=== PATIENT | female | born 1935 | race Caucasian/White ===

== ENCOUNTER 2017-07-18 12:17 | Observation (INO) | payer BC, MEDICARE ==
[2017-07-18] VITALS (7 sets, daily range): BP systolic 133–140; BP diastolic 63–85; PULSE 93–106; RESP 18–20; TEMP 97.3–98.7; O2SAT 92–96
[~2017-07-18] VITALS: Ht 157.5 cm; Wt 85.2 kg
[~2017-07-18 12:17] MED LIST: ALBU1AER INH; ASMA220A IN; BENZ100 PO; CALCTAB8 PO; CELE200 PO; CLAR5TAB PO; COZA100T PO; FLON0.053; GLUC500C3 PO; HYDR-2768 PO; METH1TAB29 PO; MIAC200S; NAPR-576 PO; OMEG100010 PO; PERC5TAB12 PO; PRAV40TA PO; PREV30CA36 PO; TAB-TAB PO; TOVI4TAB PO; VITA200017 PO
[2017-07-18] MEDS ORDERED: methylPREDNISolone SOD SUCC 125 MG/2 ML VIAL IV PUSH ONE (12:45)
[2017-07-18] MEDS ORDERED: RESP: ALBUTEROL 2.5 MG/IPRATROPIUM 0.5 MG NEB (SCH) NEB ONE ×2 (12:45→15:00)
--- NOTE | 2017-07-18 12:45 | PD ---
HPI Chief Complaint: Respiratory Symptoms Time Seen by Provider: 12:31 Travel History International Travel<30 days: No Contact w/Intl Traveler<30days: No Traveled to known affect area: No History of Present Illness HPI This 82-year-old female was sent from Dr. Lynn's office because of cough and shortness of breath. She has been sick for several days. She has had a persistent cough which is been quite severe. She is feeling short of breath. She has been bringing up clear phlegm. She has been coughing to the point of vomiting. She has a history of asthma. She also has a history of hypertension. She has not smoked for over 50 years. She was at Dr. Lynn' s office and was not responding to repeated nebulizer treatments so she was sent here. He had started a Medrol Dosepak this morning. She was on steroids 2 weeks ago. She did have a DVT in 1999 after colon surgery PFSH Past Medical History Arthritis: Yes Asthma: Yes Blood Disorders: No Heart Rhythm Problems: No Cancer: No Cardiac Catheterization: No Cardiovascular Problems: Yes (DVT) High Cholesterol: Yes Congestive Heart Failure: No Diabetes: No Diminished Hearing: No Diverticulitis: Yes Endocrine: No Gastrointestinal Disorders: Yes (IBS/colitis) GERD: Yes Glaucoma: No Genitourinary: Yes (incontinece) Hiatal Hernia: Yes Hypertension: Yes Immune Disorder: No Implanted Vascular Access Dvce: Yes Musculoskeletal: Yes (OSTEOPENIA) Neurologic: Yes Psychiatric: No Reproductive: No Respiratory: Yes (ENVIRONMENTAL ALLERGIES) Sleep Apnea: Yes ?: Not Past Surgical History Abdominal Surgery: Yes (HERNIA REPAIR X 7, colon resection) Body Medical Devices: praful rct Section: Yes (X1) Cholecystectomy: Yes Coronary Artery Bypass Graft: No Genitourinary Surgery: Yes (bladder suspension) Gynecologic Surgery: Yes (hysterectomy) Hysterectomy: Yes (AND BLADDER SUSPENSION) Joint Replacement: Yes (LEFT HIP) Neurologic Surgery: Yes (CERVICAL DISCECTOMY, BACK SURGERY) Pacemaker: No Tonsillectomy: Yes Other Surgery: Yes Social History Alcohol Use: No Tobacco Use: No Substance Use: No Allergies-Medications (Allergen,Severity, Reaction): Coded Allergies: codeine (Unverified Allergy, Severe, ITCHING, 07/18/17) hydrocodone (Unverified Allergy, Severe, ITCHING, 07/18/17) latex (Unverified Allergy, Severe, RASH, 07/18/17) lisinopril (Unverified Allergy, Intermediate, COUGH, 07/18/17) Reported Meds & Prescriptions Reported Meds & Active Scripts Active Reported Chlorhexidine Gluconate Topical (Chlorhexidine Gluconate) 2% Pad 1 Applic TOPICAL ONCE Hydrochlorothiazide 25 Mg Tab 25 Mg PO DAILY Benzonatate 200 Mg Cap 200 Mg PO TID PRN [place]-3 Fish Oil/Vitamin (Fish Oil-Cholecalciferol) 1,000-1,000 Mg Cap 1 Cap PO DAILY Multi Vitamin Daily (Multiple Vitamin) 1 Tab Tab 1 Tab PO DAILY Toviaz ER (Fesoterodine Fumarate) 4 mg Fernando 4 Mg PO DAILY Prevacid (Lansoprazole) 30 Mg Capdr 30 Mg PO DAILY Vitamin D3 (Cholecalciferol) 5,000 Unit Cap 5,000 Units PO DAILY Clarinex (Desloratadine) 5 Mg Tab 5 Mg PO DAILY Nystop Topical (Nystatin Topical) 100,000 Unit/Gm Powd 1 Applic TOPICAL Q8HR Celebrex (Celecoxib) 200 Mg Cap 200 Mg PO BID Pravachol (Pravastatin) 40 Mg Tab 40 Mg PO DAILY Amitiza (Lubiprostone) 8 Mcg Cap 24 Mcg PO BID Asmanex 120 Act Twisthaler (Mometasone 120 Act Inh) 220 Mcg/Act Inh 1 Puff INH HS Losartan (Losartan Potassium) 100 Mg Tab 100 Mg PO DAILY Duoneb (Ipratropium-Albuterol Neb) 0.5-2.5 Mg/3 Ml Neb 1 Nebule INH Q6HR NEB Proair Hfa (Albuterol Sulfate) 90 Mcg Hfa.aer.ad 2 Puff INH QID Review of Systems General / Constitutional: No: Chills Eyes: No: Diploplia, Blurred Vision HENT: No: Headaches, Vertigo Cardiovascular: No: Chest Pain or Discomfort, Palpitations Respiratory: Positive: Cough, Shortness of Breath Gastrointestinal: No: Vomiting, Diarrhea Genitourinary: No: Urgency, Frequency Musculoskeletal: No: Myalgias Skin: No Rash, No Itching Neurologic: No: Weakness Hematologic/Lymphatic: No: Easy Bruising Physical Exam Narrative GENERAL: Well-developed female SKIN: Focused skin assessment warm/dry. HEAD: Atraumatic. Normocephalic. EYES: Pupils equal and round. No scleral icterus. No injection or drainage. ENT: No nasal bleeding or discharge. Mucous membranes pink and moist. NECK: Trachea midline. No JVD. CARDIOVASCULAR: Regular rate and rhythm. No murmur appreciated. RESPIRATORY: There is accessory muscle use. There are occasional rhonchi and scattered wheezes GASTROINTESTINAL: Abdomen soft, non-tender, nondistended. Hepatic and splenic margins not palpable. MUSCULOSKELETAL: No obvious deformities. No clubbing. No cyanosis. No edema. NEUROLOGICAL: Awake and alert. No obvious cranial nerve deficits. Motor grossly within normal limits. Normal speech. PSYCHIATRIC: Appropriate mood and affect; insight and judgment normal. Data Data Last Documented VS Vital Signs Date Time Temp Pulse Resp B/P (MAP) Pulse Ox O2 Delivery O2 Flow Rate FiO2 07/18/17 13:51 95 20 140/71 (94) 95 Room Air 07/18/17 12:23 98.7 Orders Orders Electrocardiogram (07/18/17 12:40) Complete Blood Count With Diff (07/18/17 12:40) Basic Metabolic Panel (Bmp) (07/18/17 12:40) Troponin I (07/18/17 12:40) B-Type Natriuretic Peptide (07/18/17 12:40) Urinalysis - C+S If Indicated (07/18/17 12:40) D-Dimer (07/18/17 12:40) Chest, Single Ap (07/18/17 12:40) Methylprednisolone So Succ Inj (Solumedr (07/18/17 12:45) Albuterol-Ipratropium Neb (Duoneb Neb) (07/18/17 12:45) Ct Pulmonary Angiogram (07/18/17 13:32) Urine Culture (07/18/17 13:47) Iohexol 350 Inj (Omnipaque 350 Inj) (07/18/17 14:31) Ceftriaxone Inj (Rocephin Inj) (07/18/17 15:00) Albuterol-Ipratropium Neb (Duoneb Neb) (07/18/17 15:00) Labs Laboratory Tests Test 07/18/17 12:54 07/18/17 13:47 White Blood Count 4.9 TH/MM3 Red Blood Count 4.65 MIL/MM3 Hemoglobin 14.1 GM/DL Hematocrit 43.1 % Mean Corpuscular Volume 92.7 FL Mean Corpuscular Hemoglobin 30.4 PG Mean Corpuscular Hemoglobin Concent 32.8 % Red Cell Distribution Width 12.7 % Platelet Count 230 TH/MM3 Mean Platelet Volume 7.6 FL Neutrophils (%) (Auto) 83.8 % Lymphocytes (%) (Auto) 8.7 % Monocytes (%) (Auto) 2.8 % Eosinophils (%) (Auto) 4.2 % Basophils (%) (Auto) 0.5 % Neutrophils # (Auto) 4.2 TH/MM3 Lymphocytes # (Auto) 0.4 TH/MM3 Monocytes # (Auto) 0.1 TH/MM3 Eosinophils # (Auto) 0.2 TH/MM3 Basophils # (Auto) 0.0 TH/MM3 CBC Comment DIFF FINAL Differential Comment D-Dimer Quantitative (PE/DVT) 0.63 MG/L FEU Blood Urea Nitrogen 13 MG/DL Creatinine 0.75 MG/DL Random Glucose 136 MG/DL Calcium Level 8.7 MG/DL Sodium Level 140 MEQ/L Potassium Level 3.5 MEQ/L Chloride Level 106 MEQ/L Carbon Dioxide Level 27.9 MEQ/L Anion Gap 6 MEQ/L Estimat Glomerular Filtration Rate 74 ML/MIN Troponin I LESS THAN 0.02 NG/ML B-Type Natriuretic Peptide 22 PG/ML Urine Color STRAW Urine Turbidity SL CLOUDY Urine pH 6.5 Urine Specific [place] LESS/EQUAL 1.005 Urine Protein NEG mg/dL Urine Glucose (UA) NEG mg/dL Urine Ketones NEG mg/dL Urine Occult Blood NEG Urine Nitrite NEG Urine Bilirubin NEG Urine Urobilinogen 0.2 MG/DL Urine Leukocyte Esterase TRACE Urine WBC 15-19 /hpf Urine Squamous Epithelial Cells 6-8 /hpf Urine Amorphous Sediment FEW Urine Bacteria MANY /hpf Microscopic Urinalysis Comment CULTURE INDICATED MDM Medical Decision Making Medical Screen Exam Complete: Yes Emergency Medical Condition: Yes Medical Record Reviewed: Yes Differential Diagnosis Differential includes CHF, pneumonia, COPD exacerbation. Narrative Course EKG shows sinus rhythm. There is low voltage. There is no change from an EKG of 04/13/2011. Chest x-ray shows cardiomegaly and minimal basilar atelectasis. I did order a d-dimer because the patient has a history of DVT and now is short of breath. The d-dimer is 0.63. I have ordered a CT a of the chest. CTA of the chest is negative for pulmonary embolus or consolidation. On returning from CT the patient sat is 89%. Repeat exam shows increase in her wheezing. She will be given additional nebulizer treatments. She will be admitted for further evaluation. She does have a urinary tract infection with 9-14 white cells and will be given Rocephin Diagnosis Primary Impression: COPD exacerbation Admitting Information Admitting Physician Requests: Admit Raheel Nelson MD July 18, 2017 12:45
[2017-07-18 13:00] LABS: AUTOMATED NEUTROPHIL # 4.2 TH/MM3 (1.8-7.7); BASOPHIL % 0.5 % (0.0-2.0); EOSINOPHIL # 0.2 TH/MM3 (0-0.4); EOSINOPHIL % 4.2 % (0.0-4.0); HEMATOCRIT 43.1 % (35.0-46.0); HEMOGLOBIN 14.1 GM/DL (11.6-15.3); LYMPH % 8.7 % (9.0-44.0); LYMPHOCYTE # 0.4 TH/MM3 (1.0-4.8); MEAN CELL VOLUME 92.7 FL (80.0-100.0); MEAN CORPUSCULAR HEMOGLOBIN 30.4 PG (27.0-34.0); MEAN CORPUSCULAR HGB CONC 32.8 % (32.0-36.0); MEAN PLATELET VOLUME 7.6 FL (7.0-11.0); MONO % 2.8 % (0.0-8.0); MONOCYTE # 0.1 TH/MM3 (0-0.9); NEUT % 83.8 % (16.0-70.0); PLATELET COUNT 230 TH/MM3 (150-450); RED BLOOD COUNT 4.65 MIL/MM3 (4.00-5.30); RED CELL DISTRIBUTION WIDTH 12.7 % (11.6-17.2); WHITE BLOOD COUNT 4.9 TH/MM3 (4.0-11.0)
[2017-07-18 13:08] LABS: CHLORIDE 106 MEQ/L (98-107); SODIUM (NA) 140 MEQ/L (136-145)
[2017-07-18 13:11] LABS: BICARBONATE 27.9 MEQ/L (21.0-32.0); CALCIUM 8.7 MG/DL (8.5-10.1); GLUCOSE,RANDOM 136 MG/DL (74-106)
[2017-07-18 13:12] LABS: BLOOD UREA NITROGEN 13 MG/DL (7-18)
[2017-07-18 13:15] LABS: CREATININE 0.75 MG/DL (0.50-1.00); GLOMERULAR FILTRATION RATE 74 ML/MIN (>89)
[2017-07-18 13:19] LABS: TROPONIN I LESS THAN 0.02 NG/ML (0.02-0.05)
[2017-07-18] MEDS ORDERED: CELE200C PO (13:32)
[2017-07-18] MEDS ORDERED: CHOL5000 PO (13:32)
[2017-07-18] MEDS ORDERED: IPRASOL INH (13:32)
[2017-07-18] MEDS ORDERED: ALBUAER3 INH (13:32)
[2017-07-18] MEDS ORDERED: MULT1TAB46 PO (13:32)
[2017-07-18] MEDS ORDERED: LOSA100T PO (13:32)
[2017-07-18] MEDS ORDERED: PREV30CA36 PO (13:32)
[2017-07-18] MEDS ORDERED: ASMA220A INH (13:32)
[2017-07-18] MEDS ORDERED: PRAV40TA PO (13:32)
[2017-07-18] MEDS ORDERED: CLAR5TAB PO (13:32)
[2017-07-18] MEDS ORDERED: AMIT8CAP6 PO (13:32)
[2017-07-18] MEDS ORDERED: NYST10007 TOPICAL (13:32)
[2017-07-18] MEDS ORDERED: TOVI4TAB PO (13:32)
[2017-07-18] MEDS ORDERED: CHLO2PAD TOPICAL (13:33)
[2017-07-18] MEDS ORDERED: HYDR25TA5 PO (13:33)
[2017-07-18] MEDS ORDERED: OMEGCAP PO (13:33)
[2017-07-18] MEDS ORDERED: BENZ1CAP51 PO (13:33)
--- NOTE | 2017-07-18 13:49 | RADRPT ---
EXAM DATE/TIME: 07/18/2017 12:58 [facility] COMPARISON: No previous studies available for comparison. INDICATIONS : Cough MEDICAL HISTORY : Hiatal hernia. Hypertension Deep venous thrombosis. Asthma, GERD SURGICAL HISTORY : Colon resection. ENCOUNTER: Initial ACUITY: 1 day PAIN SCORE: 0/10 LOCATION: Bilateral chest FINDINGS: A single view of the chest demonstrates the lungs to be symmetrically aerated without evidence of mas s, infiltrate or effusion. Minimal basilar atelectasis. Cardiomegaly. Mildly tortuous aorta. Previous bilateral shoulder surgery. CONCLUSION: 1. Minimal basilar atelectasis. Cardiomegaly. Jonh Payne MD on July 18, 2017 at 13:46 Board Certified Radiologist. This report was verified electronically.
[2017-07-18 14:02] LABS: BILIRUBIN, URINE NEG (NEG); BLOOD, URINE NEG (NEG); GLUCOSE,URINE NEG (NEG); KETONE, URINE NEG (NEG); NITRITE,URINE NEG (NEG); PH, URINE 6.5 (5.0-8.5); URINE LEUKOCYTE ESTERASE TRACE (NEG)
[2017-07-18 14:03] LABS: URINE COLOR STRAW (YELLW/STRAW)
[2017-07-18 14:05] LABS: AMORPHOUS SEDIMENT, URINE FEW; BACTERIA, URINE MANY /hpf; WBC, URINE 15-19 /hpf (0-5)
[2017-07-18] MEDS ORDERED: IOHEXOL 350 MG/ML 10 ML VIAL (for RAD DIAG) IVCONTRAST ONE (14:31)
--- NOTE | 2017-07-18 14:48 | RADRPT ---
EXAM DATE/TIME: 07/18/2017 14:18 [facility] COMPARISON: No previous studies available for comparison. INDICATIONS : Difficulty breathing. Cough. IV CONTRAST: 75 cc Omnipaque 350 (iohexol) IV RADIATION DOSE: 20.36 CTDIvol (mGy) MEDICAL HISTORY : Gastroesophageal reflux disease. Deep venous thrombosis. Hernia, hiatal.Hypertension. Asthma. SURGICAL HISTORY : Cholecystectomy. Hysterectomy. section.Bladder suspension. ENCOUNTER: Initial ACUITY: 2 days PAIN SCALE: 2/10 LOCATION: Bilateral chest TECHNIQUE: Volumetric scanning of the chest was performed using a pulmonary embolism protocol MIP images were re constructed. Using automated exposure control and adjustment of the mA and/or kV according to patien t size, radiation dose was kept as low as reasonably achievable to obtain optimal diagnostic quality images. DICOM format image data is available electronically for review and comparison. Follow-up recommendations for detected pulmonary nodules are based at a minimum on nodule size and pa tient risk factors according to Fleischner Society Guidelines. FINDINGS: No filling defects identified to suggest pulmonary embolic disease. No consolidation of pleural or pe ricardial effusion. Minimal dependent atelectasis in the lungs. Mild coronary calcifications. No acut e findings in upper abdomen. CONCLUSION: 1. Negative for pulmonary embolus. No consolidation. Minimal dependent atelectasis. Jonh Payne MD on July 18, 2017 at 14:35 Board Certified Radiologist. This report was verified electronically.
[2017-07-18] MEDS ORDERED: ACETAMINOPHEN 325 MG TAB PO PRN ×2 (15:00)
[2017-07-18] MEDS ORDERED: cefTRIAXone INJ 1,000 MG in SODIUM CHLORIDE 0.9% INJ 100 ML IV ONE (15:00)
[2017-07-18] MEDS ORDERED: SODIUM CHLORIDE 0.9% FLUSH 10 ML FLUSH IV FLUSH PRN (15:00)
[2017-07-18] MEDS ORDERED: NALOXONE HCL 0.4 MG/ML AMP IV PUSH PRN (15:00)
[2017-07-18] MEDS ORDERED: RESP: ALBUTEROL 2.5 MG/IPRATROPIUM 0.5 MG NEB (PRN) NEB (17:15)
--- NOTE | 2017-07-18 17:19 | EKG ---
Date Performed: 07/18/2017 Time Performed: 12:49:01 PTAGE: 82 years EKG: Sinus rhythm LOW QRS VOLTAGE IN PRECORDIAL LEADS NONSPECIFIC ST-T CHANGES BORDERLINE ECG PREVIOUS TRACING : 04/13/2011 08.15 Since the previous tracing, no significant change noted DOCTOR: Thao Saucedo Interpretating Date/Time 07/18/2017 17:16:58
--- NOTE | 2017-07-18 17:25 | HHI.HP ---
HPI Service [facility] Primary Care Physician Bert Lynn MD Admission Diagnosis COPD EXACERBATION Diagnoses: Chief Complaint: Cough Travel History International Travel<30 Days: No Contact w/Intl Traveler <30 Da: No Traveled to Known Affected Are: No History of Present Illness The patient is an 82-year-old female with a past medical history of asthma presenting to the hospital with shortness of breath and cough. Over the past couple of months the patient has been having issues with coughing and shortness of breath and has had a couple of courses of Z-Paks and prednisone. She said her symptoms got better but then 3 days ago started to get worse. She attributes the worsening to allergies. She has been coughing so much that at some point she vomits from the coughing fits. Her coughing fits tend to get worse at nighttime. She said she went to her primary care doctor today and had a bad coughing attack over there and was referred to the hospital for further management. The patient says that over the past few weeks she has gone through 5 bottles of cough medications. She says she also has been treated for a UTI. She says she tends to get UTIs regularly and they are generally asymptomatic. Review of Systems Except as stated in HPI: all other systems reviewed are Neg Past Family Social History Past Medical History Asthma Hypertension Hyperlipidemia UTIs Past Surgical History Left hip surgery Left shoulder surgery Colon surgery Bladder surgery Hysterectomy Allergies: Coded Allergies: codeine (Unverified Allergy, Severe, ITCHING, 07/18/17) hydrocodone (Unverified Allergy, Severe, ITCHING, 07/18/17) latex (Unverified Allergy, Severe, RASH, 07/18/17) lisinopril (Unverified Allergy, Intermediate, COUGH, 07/18/17) Family History Her son at 33 from heart disease Lung cancer Pancreatic cancer Breast cancer Diabetes Social History The patient quit smoking 50 years ago. She socially drinks wine coolers. Physical Exam Vital Signs Vital Signs Date Time Temp Pulse Resp B/P (MAP) Pulse Ox O2 Delivery O2 Flow Rate FiO2 07/18/17 16:31 97.3 101 18 135/85 (102) 93 07/18/17 16:05 07/18/17 15:34 100 18 138/63 (88) 92 Room Air 07/18/17 15:00 92 Room Air 07/18/17 13:51 95 20 140/71 (94) 95 Room Air 07/18/17 12:42 106 Room Air 07/18/17 12:42 106 18 133/74 (93) 96 Room Air 07/18/17 12:23 98.7 93 20 139/69 (92) 93 Physical Exam GENERAL: This is a well-nourished, well-developed patient, in no apparent distress. SKIN: No rashes, ecchymoses or lesions. Cool and dry. HEAD: Atraumatic. Normocephalic. No temporal or scalp tenderness. EYES: Pupils equal round and reactive. Extraocular motions intact. No scleral icterus. No injection or drainage. ENT: Nose without bleeding, purulent drainage or septal hematoma. Throat without erythema, tonsillar hypertrophy or exudate. Uvula midline. Airway patent. NECK: Trachea midline. No JVD or lymphadenopathy. Supple, nontender, no meningeal signs. CARDIOVASCULAR: Regular rate and rhythm without murmurs, gallops, or rubs. RESPIRATORY: Mild wheezing. GASTROINTESTINAL: Abdomen soft, non-tender, nondistended. No hepato-splenomegaly , or palpable masses. No guarding. MUSCULOSKELETAL: Extremities without clubbing, cyanosis, or edema. No joint tenderness, effusion, or edema noted. NEUROLOGICAL: Awake and alert. Cranial nerves II through XII intact. Motor and sensory grossly within normal limits. Five out of 5 muscle strength in all muscle groups. Normal speech. Laboratory Laboratory Tests Test 07/18/17 12:54 07/18/17 13:47 White Blood Count 4.9 Red Blood Count 4.65 Hemoglobin 14.1 Hematocrit 43.1 Mean Corpuscular Volume 92.7 Mean Corpuscular Hemoglobin 30.4 Mean Corpuscular Hemoglobin Concent 32.8 Red Cell Distribution Width 12.7 Platelet Count 230 Mean Platelet Volume 7.6 Neutrophils (%) (Auto) 83.8 Lymphocytes (%) (Auto) 8.7 Monocytes (%) (Auto) 2.8 Eosinophils (%) (Auto) 4.2 Basophils (%) (Auto) 0.5 Neutrophils # (Auto) 4.2 Lymphocytes # (Auto) 0.4 Monocytes # (Auto) 0.1 Eosinophils # (Auto) 0.2 Basophils # (Auto) 0.0 CBC Comment DIFF FINAL Differential Comment D-Dimer Quantitative (PE/DVT) 0.63 Blood Urea Nitrogen 13 Creatinine 0.75 Random Glucose 136 Calcium Level 8.7 Sodium Level 140 Potassium Level 3.5 Chloride Level 106 Carbon Dioxide Level 27.9 Anion Gap 6 Estimat Glomerular Filtration Rate 74 Troponin I LESS THAN 0.02 B-Type Natriuretic Peptide 22 Urine Color STRAW Urine Turbidity SL CLOUDY Urine pH 6.5 Urine Specific [place] LESS/EQUAL 1.005 Urine Protein NEG Urine Glucose (UA) NEG Urine Ketones NEG Urine Occult Blood NEG Urine Nitrite NEG Urine Bilirubin NEG Urine Urobilinogen 0.2 Urine Leukocyte Esterase TRACE Urine WBC 15-19 Urine Squamous Epithelial Cells 6-8 Urine Amorphous Sediment FEW Urine Bacteria MANY Microscopic Urinalysis Comment CULTURE INDICATED Date/Time Source Procedure Growth Status 07/18/17 13:47 Urine Clean Catch Urine Culture Pending Received Result Diagram: 07/18/17 1254 07/18/[address] Angiography 07/18/17 1332 Signed Impressions: Service Date/Time: Tuesday, July 18, 2017 14:18 - CONCLUSION: 1. Negative for pulmonary embolus. No consolidation. Minimal dependent atelectasis. Jonh Payne MD Chest X-Ray 07/18/17 1240 Signed Impressions: Service Date/Time: Tuesday, July 18, 2017 12:58 - CONCLUSION: 1. Minimal basilar atelectasis. Cardiomegaly. Jonh Payne MD Caprini VTE Risk Assessment Caprini VTE Risk Assessment: Mod/High Risk (score >= 2) Caprini Risk Assessment Model Point Value = 1 Point Value = 2 Point Value = 3 Point Value = 5 Age 41-60 Minor surgery BMI > 25 kg/m2 Swollen legs Varicose veins or History of unexplained or recurrent spontaneous Oral contraceptives or hormone replacement Sepsis (< 1 month) Serious lung disease, including pneumonia (< 1 month) Abnormal pulmonary function Acute myocardial infarction Congestive heart failure (< 1 month) History of inflammatory bowel disease Medical patient at bed rest Age 61-74 Arthroscopic surgery Major open surgery (> 45 min) Laparoscopic surgery (> 45 min) Malignancy Confined to bed (> 72 hours) Immobilizing plaster cast Central venous access Age >= 75 History of VTE Family history of VTE Factor V Leiden Prothrombin [id number] Lupus anticoagulant Anticardiolipin antibodies Elevated serum homocysteine Heparin-induced thrombocytopenia Other congenital or acquired thrombophilia Stroke (< 1 month) Elective arthroplasty Hip, pelvis, or leg fracture Acute spinal cord injury (< 1 month) Prophylaxis Regimen Total Risk Factor Score Risk Level Prophylaxis Regimen 0-1 Low Early ambulation 2 Moderate Order ONE of the following: *Sequential Compression Device (SCD) *Heparin 5000 units SQ BID 3-4 Higher Order ONE of the following medications: *Heparin 5000 units SQ TID *Enoxaparin/Lovenox 40 mg SQ daily (WT < 150 kg, CrCl > 30 mL/min) *Enoxaparin/Lovenox 30 mg SQ daily (WT < 150 kg, CrCl > 10-29 mL/min) *Enoxaparin/Lovenox 30 mg SQ BID (WT < 150 kg, CrCl > 30 mL/min) AND/OR *Sequential Compression Device (SCD) 5 or more Highest Order ONE of the following medications: *Heparin 5000 units SQ TID (Preferred with Epidurals) *Enoxaparin/Lovenox 40 mg SQ daily (WT < 150 kg, CrCl > 30 mL/min) *Enoxaparin/Lovenox 30 mg SQ daily (WT < 150 kg, CrCl > 10-29 mL/min) *Enoxaparin/Lovenox 30 mg SQ BID (WT < 150 kg, CrCl > 30 mL/min) AND *Sequential Compression Device (SCD) Assessment and Plan Assessment and Plan Asthma/ allergies The patient has required multiple courses of treatment over the past month or so. She is completed Z-Paks and prednisone tapers. She continues to have coughing fits. CTA negative. - Continue IV Solu-Medrol. - standing and as needed nebs. - continue Tessalon Perles and Mucinex. - oxygen as needed. - pulmonology consult requested. - incentive spirometry. HTN Blood pressure well controlled. - continue losartan and HCTZ. Hyperglycemia Blood sugar elevated on presentation. - check an A1c. UTI Chronic problem. - continue ceftriaxone and follow culture. PPx: Lovenox Code Status Full Discussed Condition With Pt, pt's family, Rafy Mojica DO July 18, 2017 17:25
[2017-07-18] MEDS: BENZONATATE 100 MG CAP PO PRN (17:33)
[2017-07-18] MEDS: ENOXAPARIN SODIUM 40 MG/0.4 ML SYRINGE SQ SCH (17:33)
[2017-07-18] MEDS: RESP: ALBUTEROL 2.5 MG/IPRATROPIUM 0.5 MG NEB (SCH) NEB (20:48)
[2017-07-18] MEDS: LUBIPROSTONE 24 MCG PO SCH (21:00)
[2017-07-18] MEDS: guaiFENesin E.R. 600 MG TAB PO SCH (21:44)
[2017-07-18] MEDS: DOCUSATE SODIUM 50 MG/SENNA 8.6 MG TAB PO SCH (21:44)
[2017-07-18] MEDS: CELECOXIB 200 MG CAP PO SCH (21:44)
[2017-07-18] MEDS: methylPREDNISolone SOD SUCC 40 MG/1 ML VIAL IV PUSH SCH (21:45)
[2017-07-18] MEDS: NYSTATIN 100,000 U/GM PWD 15 GM BTL TOPICAL SCH (21:46)
[2017-07-18] MEDS: SODIUM CHLORIDE 0.9% FLUSH 10 ML FLUSH IV FLUSH SCH (21:46)
[2017-07-18 22:52] LABS: HEMOGLOBIN A1C 5.9 % (4.3-6.0)
[2017-07-19] VITALS (7 sets, daily range): BP systolic 114–138; BP diastolic 62–66; PULSE 72–98; RESP 19–20; TEMP 96.4–98; O2SAT 93–97
[2017-07-19] MEDS: BENZONATATE 100 MG CAP PO PRN ×3 (00:06→21:10)
[2017-07-19] MEDS: guaiFENesin SOLUTION 200 MG/10 ML CUP PO PRN ×4 (01:29→19:32)
[2017-07-19] MEDS: NYSTATIN 100,000 U/GM PWD 15 GM BTL TOPICAL SCH ×3 (04:16→21:11)
[2017-07-19] MEDS: methylPREDNISolone SOD SUCC 40 MG/1 ML VIAL IV PUSH SCH ×3 (04:17→21:10)
[2017-07-19 07:17] LABS: AUTOMATED NEUTROPHIL # 4.8 TH/MM3 (1.8-7.7); BASOPHIL % 0.7 % (0.0-2.0); EOSINOPHIL % 0.1 % (0.0-4.0); HEMATOCRIT 42.8 % (35.0-46.0); HEMOGLOBIN 13.9 GM/DL (11.6-15.3); LYMPH % 6.8 % (9.0-44.0); LYMPHOCYTE # 0.4 TH/MM3 (1.0-4.8); MEAN CELL VOLUME 94.8 FL (80.0-100.0); MEAN CORPUSCULAR HEMOGLOBIN 30.7 PG (27.0-34.0); MEAN CORPUSCULAR HGB CONC 32.4 % (32.0-36.0); MEAN PLATELET VOLUME 7.9 FL (7.0-11.0); MONO % 1.8 % (0.0-8.0); MONOCYTE # 0.1 TH/MM3 (0-0.9); NEUT % 90.6 % (16.0-70.0); PLATELET COUNT 241 TH/MM3 (150-450); RED BLOOD COUNT 4.51 MIL/MM3 (4.00-5.30); WHITE BLOOD COUNT 5.3 TH/MM3 (4.0-11.0)
[2017-07-19 07:27] LABS: CHLORIDE 105 MEQ/L (98-107); SODIUM (NA) 140 MEQ/L (136-145)
[2017-07-19 07:38] LABS: ALBUMIN 3.7 GM/DL (3.4-5.0); BICARBONATE 26.6 MEQ/L (21.0-32.0); CALCIUM 9.2 MG/DL (8.5-10.1); GLUCOSE,RANDOM 169 MG/DL (74-106)
[2017-07-19 07:39] LABS: BLOOD UREA NITROGEN 14 MG/DL (7-18)
[2017-07-19 07:42] LABS: ALT (GPT) 37 U/L (10-53); AST (GOT) 26 U/L (15-37); CREATININE 0.77 MG/DL (0.50-1.00); GLOMERULAR FILTRATION RATE 72 ML/MIN (>89)
[2017-07-19 07:43] LABS: TOTAL BILIRUBIN ADULT 0.4 MG/DL (0.2-1.0); TOTAL PROTEIN 7.4 GM/DL (6.4-8.2)
[2017-07-19 07:44] LABS: ALKALINE PHOSPHATASE 94 U/L (45-117)
[2017-07-19] MEDS: RESP: ALBUTEROL 2.5 MG/IPRATROPIUM 0.5 MG NEB (SCH) NEB ×3 (08:02→19:18)
[2017-07-19] MEDS: PANTOPRAZOLE SOD 40 MG DELAYED RELEASE TAB PO SCH (08:30)
[2017-07-19] MEDS: MULTIVITAMIN TAB PO SCH (08:31)
[2017-07-19] MEDS: DOCUSATE SODIUM 50 MG/SENNA 8.6 MG TAB PO SCH ×2 (08:31→21:11)
[2017-07-19] MEDS: guaiFENesin E.R. 600 MG TAB PO SCH (08:31)
[2017-07-19] MEDS: CELECOXIB 200 MG CAP PO SCH ×2 (08:31→21:10)
[2017-07-19] MEDS: LOSARTAN 50 MG TAB PO SCH (08:31)
[2017-07-19] MEDS: LORATADINE 10 MG TAB PO SCH (08:31)
[2017-07-19] MEDS: CHOLECALCIFEROL (VIT D3) 5000 UNIT CAP PO SCH (08:31)
[2017-07-19] MEDS: PRAVASTATIN SOD 40 MG TAB PO SCH (08:31)
[2017-07-19] MEDS: SODIUM CHLORIDE 0.9% FLUSH 10 ML FLUSH IV FLUSH SCH ×2 (08:32→21:10)
[2017-07-19] MEDS: TOLTERODINE TARTRATE 4 MG CAP LA PO SCH (08:38)
[2017-07-19] MEDS: HYDROCHLOROTHIAZIDE 25 MG TAB PO SCH (08:39)
[2017-07-19] MEDS ORDERED: POTASSIUM CHLORIDE 20 MEQ CONTROLLED RELEASE TAB PO ONE (09:30)
[2017-07-19] MEDS: LUBIPROSTONE 24 MCG PO SCH ×2 (10:13→21:00)
--- NOTE | 2017-07-19 12:07 | HHI.PR ---
Subjective Remarks Patient seen and evaluated today in follow-up for likely COPD exacerbation. Patient 20 year pack history although she quit over 50 years ago. Patient doing well with bronchodilators and steroids. Still complaining of some cough Pulmonary consult pending Objective Vitals Vital Signs Date Time Temp Pulse Resp B/P (MAP) Pulse Ox O2 Delivery O2 Flow Rate FiO2 07/19/17 08:40 95 21 07/19/17 08:00 96.9 72 19 114/62 (79) 95 07/19/17 01:41 97.0 84 20 114/65 (81) 94 07/18/17 21:16 98.1 99 20 136/74 (94) 93 07/18/17 19:50 94 21 07/18/17 16:31 97.3 101 18 135/85 (102) 93 07/18/17 16:05 07/18/17 15:34 100 18 138/63 (88) 92 Room Air 07/18/17 15:00 92 Room Air 07/18/17 13:51 95 20 140/71 (94) 95 Room Air 07/18/17 12:42 106 Room Air 07/18/17 12:42 106 18 133/74 (93) 96 Room Air 07/18/17 12:23 98.7 93 20 139/69 (92) 93 I/O 07/18/17 07/18/17 07/18/17 07/19/17 07/19/17 07/19/17 07:00 15:00 23:00 07:00 15:00 23:00 Intake Total 340 ml 120 ml Balance 340 ml 120 ml Intake Oral 240 ml 120 ml IV Total 100 ml # Voids 1 2 3 Result Diagram: 07/19/17 0625 07/19/[address] Angiography 07/18/17 1332 Signed Impressions: Service Date/Time: Tuesday, July 18, 2017 14:18 - CONCLUSION: 1. Negative for pulmonary embolus. No consolidation. Minimal dependent atelectasis. Jonh Payne MD Chest X-Ray 07/18/17 1240 Signed Impressions: Service Date/Time: Tuesday, July 18, 2017 12:58 - CONCLUSION: 1. Minimal basilar atelectasis. Cardiomegaly. Jonh Payne MD Objective Remarks GENERAL: This is a well-nourished, well-developed patient, coughing CARDIOVASCULAR: Regular rate and rhythm without murmurs, gallops, or rubs. RESPIRATORY: Bilateral rales and rhonchi GASTROINTESTINAL: Abdomen soft, non-tender, nondistended. Normal active bowel sounds MUSCULOSKELETAL: Extremities without clubbing, cyanosis, or edema. NEURO: Alert & Oriented x4 to person, place, time, situation. Moves all ext x4 A/P Problem List: (1) COPD exacerbation ICD Code: J44.1 - Chronic obstructive pulmonary disease with (acute) exacerbation Status: Acute Plan: Continue with bronchodilators by nebulizer, IV steroids and empiric antibiotics Continue antitussives, Claritin Pulmonary toilet (2) HTN (hypertension) ICD Code: I10 - Essential (primary) hypertension Plan: Continue with losartan and hydrochlorothiazide (3) Hypokalemia ICD Code: E87.6 - Hypokalemia Plan: Replace and follow trend Clau Boo MD July 19, 2017 12:07
[2017-07-19] MEDS ORDERED: cefTRIAXone INJ 1,000 MG in SODIUM CHLORIDE 0.9% INJ 100 ML IV SCH (15:00)
[2017-07-19] MEDS: ENOXAPARIN SODIUM 40 MG/0.4 ML SYRINGE SQ SCH (15:27)
--- NOTE | 2017-07-19 16:33 | MB ---
cc: Santos Angeles MD DATE: 07/19/2017 REASON FOR CONSULTATION: COPD/asthma exacerbation. HISTORY OF PRESENT ILLNESS: The patient is an 82-year-old female is known to have asthma came because she was short of breath and coughing. She reports she is a little bit better, but she continues to have some cough. The symptoms have been there for about 4-5 days. No fevers or chills. The patient did take a Z-ANTONINA and prednisone as an outpatient; however, it did not make her feel much better. She does have some wheezing as well. The patient does have a granddaughter who has sarcoidosis and she is concerned about that. I reviewed her past medical history in detail. PAST MEDICAL HISTORY: Positive for asthma, hypertension, hyperlipidemia and recurrent UTIs. PAST SURGICAL HISTORY: Positive for hip surgery, shoulder surgery, colon surgery, bladder surgery, as well as hysterectomy. ALLERGIES: SHE IS ALLERGIC TO CODEINE, HYDROCODONE, LATEX AND LISINOPRIL. FAMILY HISTORY: Positive for lung cancer, sarcoidosis, pancreatic cancer, breast cancer and diabetes mellitus. REVIEW OF SYSTEMS: Negative except what was mentioned in HPI. PHYSICAL EXAMINATION: VITAL SIGNS: Temperature is 96.9, pulse 72, respiratory rate is 90, blood pressure ____. She is sating 95% on 2 liters. GENERAL APPEARANCE: Overweight. HEENT: Atraumatic, normocephalic. NECK: Trachea midline. LUNGS: Bilateral expiratory wheezing and decreased breath sounds over both bases. HEART: S1, S2. ABDOMEN: Soft, nontender. EXTREMITIES: No edema or cyanosis. NEUROLOGIC: Alert, oriented x 3, moves all extremities. LABORATORY DATA: Reviewed. WBC 5.3, hemoglobin 13.9. Sodium is 140, potassium 3.2. Her BUN is 8, creatinine is 0.7. I IMAGING STUDIES: I reviewed her CT angio that did not show any PE but it did show some dependent atelectasis. ASSESSMENT AND PLAN: Chronic obstructive pulmonary disease/asthma exacerbation. I do believe overall she is doing okay. She is not in impending respiratory failure. I agree with the current IV steroids and the current IV antibiotics. I would like to add an inhaler for her to use as maintenance which is Breo 100/25 one puff once a day and if not available in the hospital, then we can use Symbicort or Advair. I expect by tomorrow we can switch to oral prednisone and she should be able to go home in about 2 days. She will need an outpatient followup. MD ROMA Arriaza/ISRAEL , 01:06 PM , 04:31 PM
[2017-07-19] MEDS: FLUTICASONE 100 MCG/VILANTEROL 25 MCG INHALER INH SCH (16:36)
[2017-07-20] VITALS: BP 107/55; PULSE 78; RESP 20; TEMP 96.3; O2SAT 92
[2017-07-20] MEDS: methylPREDNISolone SOD SUCC 40 MG/1 ML VIAL IV PUSH SCH (05:35)
[2017-07-20] MEDS: NYSTATIN 100,000 U/GM PWD 15 GM BTL TOPICAL SCH (07:12)
[2017-07-20] MEDS: RESP: ALBUTEROL 2.5 MG/IPRATROPIUM 0.5 MG NEB (SCH) NEB (07:56)
[2017-07-20 08:00] VITALS: BP 144/70; PULSE 84; RESP 19; TEMP 97.6; O2SAT 97
[2017-07-20] MEDS: MULTIVITAMIN TAB PO SCH (08:49)
[2017-07-20] MEDS: LORATADINE 10 MG TAB PO SCH (08:49)
[2017-07-20] MEDS: CELECOXIB 200 MG CAP PO SCH (08:49)
[2017-07-20] MEDS: LOSARTAN 50 MG TAB PO SCH (08:49)
[2017-07-20] MEDS: TOLTERODINE TARTRATE 4 MG CAP LA PO SCH (08:49)
[2017-07-20] MEDS: PRAVASTATIN SOD 40 MG TAB PO SCH (08:50)
[2017-07-20] MEDS: DOCUSATE SODIUM 50 MG/SENNA 8.6 MG TAB PO SCH (08:50)
[2017-07-20] MEDS: CHOLECALCIFEROL (VIT D3) 5000 UNIT CAP PO SCH (08:50)
[2017-07-20] MEDS: PANTOPRAZOLE SOD 40 MG DELAYED RELEASE TAB PO SCH (08:50)
[2017-07-20] MEDS: HYDROCHLOROTHIAZIDE 25 MG TAB PO SCH (08:50)
[2017-07-20] MEDS: SODIUM CHLORIDE 0.9% FLUSH 10 ML FLUSH IV FLUSH SCH (08:51)
[2017-07-20] MEDS: FLUTICASONE 100 MCG/VILANTEROL 25 MCG INHALER INH SCH (08:51)
[2017-07-20] MEDS: LUBIPROSTONE 24 MCG PO SCH (08:51)
[2017-07-20] MEDS ORDERED: Albuterol-Ipratropium Neb NEB (09:30)
[2017-07-20] MEDS ORDERED: AMLO10 PO (09:30)
[2017-07-20] MEDS ORDERED: Fluticason-Vilanter 100-25 Inh INH (09:30)
[2017-07-20] MEDS ORDERED: PRED10PA PO (09:30)
--- NOTE | 2017-07-20 09:32 | HHI.DCPOC ---
Discharge Care Plan Diagnosis: (1) COPD exacerbation (2) Cough (3) HTN (hypertension) Goals to Promote Your Health * To prevent worsening of your condition and complications * To maintain your health at the optimal level Directions to Meet Your Goals Take your medications as prescribed Follow your dietary instruction Follow activity as directed Keep your appointments as scheduled Take your immunizations and boosters as scheduled If your symptoms worsen call your PCP, if no PCP go to Urgent Care Center or Emergency Room Smoking is Dangerous to Your Health. Avoid second hand smoke Call the 24-hour hour crisis hotline for domestic abuse at Clau Boo MD July 20, 2017 09:32
--- NOTE | 2017-07-20 09:35 | HHI.DS ---
Discharge Summary Admission Date July 18, 2017 at 15:03 Discharge Date: July 20, 2017 Admitting Diagnosis COPD EXACERBATION (1) COPD exacerbation ICD Code: J44.1 - Chronic obstructive pulmonary disease with (acute) exacerbation Status: Acute (2) HTN (hypertension) ICD Code: I10 - Essential (primary) hypertension (3) Hypokalemia ICD Code: E87.6 - Hypokalemia Procedures None Brief History - From Admission The patient is an 82-year-old female with a past medical history of asthma presenting to the hospital with shortness of breath and cough. Over the past couple of months the patient has been having issues with coughing and shortness of breath and has had a couple of courses of Z-Paks and prednisone. She said her symptoms got better but then 3 days ago started to get worse. She attributes the worsening to allergies. She has been coughing so much that at some point she vomits from the coughing fits. Her coughing fits tend to get worse at nighttime. She said she went to her primary care doctor today and had a bad coughing attack over there and was referred to the hospital for further management. The patient says that over the past few weeks she has gone through 5 bottles of cough medications. She says she also has been treated for a UTI. She says she tends to get UTIs regularly and they are generally asymptomatic. CBC/BMP: 07/19/17 0625 07/19/17 0625 Significant Findings Laboratory Tests Test 07/18/17 12:54 07/18/17 13:47 07/19/17 06:25 Neutrophils (%) (Auto) 83.8 % (16.0-70.0) 90.6 % (16.0-70.0) Lymphocytes (%) (Auto) 8.7 % (9.0-44.0) 6.8 % (9.0-44.0) Eosinophils (%) (Auto) 4.2 % (0.0-4.0) Lymphocytes # (Auto) 0.4 TH/MM3 (1.0-4.8) 0.4 TH/MM3 (1.0-4.8) D-Dimer Quantitative (PE/DVT) 0.63 MG/L FEU (0.00-0.50) Random Glucose 136 MG/DL (74-106) 169 MG/DL (74-106) Estimat Glomerular Filtration Rate 74 ML/MIN (>89) 72 ML/MIN (>89) Troponin I LESS THAN 0.02 NG/ML Urine Leukocyte Esterase TRACE (NEG) Urine WBC 15-19 /hpf (0-5) Urine Squamous Epithelial Cells 6-8 /hpf (0-5) Urine Bacteria MANY /hpf (NONE) Potassium Level 3.2 MEQ/L (3.5-5.1) PE at Discharge GENERAL: This is a well-nourished, well-developed patient, coughing CARDIOVASCULAR: Regular rate and rhythm without murmurs, gallops, or rubs. RESPIRATORY: Bilateral rales and rhonchi GASTROINTESTINAL: Abdomen soft, non-tender, nondistended. Normal active bowel sounds MUSCULOSKELETAL: Extremities without clubbing, cyanosis, or edema. NEURO: Alert & Oriented x4 to person, place, time, situation. Moves all ext x4 Pt update on day of discharge Patient seen and evaluated today in follow-up for cough, shortness of breath and likely COPD exacerbation. Pulmonary consult appreciated. Patient otherwise stable although still coughing. I am concerned that she has had a reaction before and lisinopril may have cough related to her ARB. Hospital Course This patient is an 82-year-old female was admitted with cough and COPD exacerbation. She did improve with steroids and bronchodilators by nebulizer. Patient had some empiric antibiotics given. No source of infection was found. Patient tried multiple cough medications. She did have a cough reaction to lisinopril in the past per her report and may be having a reaction to her ARB. Pt Condition on Discharge: Good Discharge Disposition: Discharge Home Discharge Time: <= 30 minutes Discharge Instructions DIET: Follow Instructions for: As Tolerated, No Restrictions Activities you can perform: Regular-No Restrictions Follow up Referrals: PCP Follow-up Pulmonology - 4 Weeks with Santos Angeles MD New Medications: Amlodipine (Norvasc) 10 Mg Tab 10 MG PO DAILY for Blood Pressure Management, #30 TAB 0 Refills Prednisone (21) 10 mg tab Dose Pack (Prednisone (21) 10 mg tab Dose Pack) 10 Mg Pack 10 MG PO DIRECTED for Inflammation, #1 DSPK 0 Refills [Albuterol-Ipratropium Neb] () 1 AMPULE NEBU 1 AMPULE NEB Q2HR NEB PRN for dyspnea, #90 [Fluticason-Vilanter 100-25 Inh] () 14 PUFF INHP 1 PUFF INH DAILY for copd, #1 Continued Medications: Albuterol Sulfate (Proair Hfa) 90 Mcg Hfa.aer.ad 2 PUFF INH QID Benzonatate (Benzonatate) 200 Mg Cap 200 MG PO TID PRN for COUGH, CAP 0 Refills Celecoxib (Celebrex) 200 Mg Cap 200 MG PO BID for Pain Management, CAP 0 Refills Chlorhexidine Gluconate Topical (Chlorhexidine Gluconate Topical) 2% Pad 1 APPLIC TOPICAL ONCE for Skin Cleanser, #1 PACK 0 Refills Cholecalciferol (Vitamin D3) 5,000 Unit Cap 5000 UNITS PO DAILY for Nutritional Supplement, #30 CAP 0 Refills Desloratadine (Clarinex) 5 Mg Tab 5 MG PO DAILY for Allergy Management, TAB 0 Refills Fesoterodine ER (Toviaz ER) 4 mg Fernando 4 MG PO DAILY for Overactive bladder, #30 TAB 0 Refills Fish Oil-Cholecalciferol ([place]-3 Fish Oil/Vitamin) 1,000-1,000 Mg Cap 1 CAP PO DAILY for Nutritional Supplement, CAP 0 Refills Hydrochlorothiazide (Hydrochlorothiazide) 25 Mg Tab 25 MG PO DAILY, #30 TAB 0 Refills Ipratropium-Albuterol Neb (Duoneb) 0.5-2.5 Mg/3 Ml Neb 1 NEBULE INH Q6HR NEB for Breathing Treatment, #120 NEBULE 0 Refills Lansoprazole (Prevacid) 30 Mg Capdr 30 MG PO DAILY, CAP 0 Refills Lubiprostone (Amitiza) 8 Mcg Cap 24 MCG PO BID, CAP Mometasone 120 Act Inh (Asmanex 120 Act Twisthaler) 220 Mcg/Act Inh 1 PUFF INH HS for Asthma Management, #1 INHALER 0 Refills Multiple Vitamin (Multi Vitamin Daily) 1 Tab Tab 1 TAB PO DAILY Nystatin Topical (Nystop Topical) 100,000 Unit/Gm Powd 1 APPLIC TOPICAL Q8HR for Infection, #15 GM 0 Refills Pravastatin (Pravachol) 40 Mg Tab 40 MG PO DAILY for Cholesterol Management, #30 TAB 0 Refills Discontinued Medications: Losartan (Losartan) 100 Mg Tab 100 MG PO DAILY for Blood Pressure Management, #30 TAB 0 Refills Clau Boo MD July 20, 2017 09:35
--- NOTE | 2017-07-20 09:47 | HHI.FF ---
Face to Face Verification Diagnosis: (1) COPD exacerbation (2) Cough (3) HTN (hypertension) Home Health Nursing Order: Medical education Signs/symptoms of disease process Medication education-adverse effect Nursing assessment with vital signs Telehealth I have seen patient Elyssa Mccartney on 07/20/17. My clinical findings support the need for the requested home health care services because: Patient has SOB I certify that my clinical findings support that this patient is homebound because: Hx COPD- exertion dyspnea/weakness Clau Boo MD July 20, 2017 09:47
== END 2017-07-20 10:50 | disposition home or self-care (01) ==
LOC: PHED 12:17 → PHEDA 15:03 → PH3B 16:09
PROVIDERS: ADMIT Hospitalist; ATTEND Hospitalist
DX: J44.1 Chronic obstructive pulmonary disease with (acute) exacerbation (principal); J45.901 Unspecified asthma with (acute) exacerbation; I11.9 Hypertensive heart disease without heart failure; E87.6 Hypokalemia; N39.0 Urinary tract infection, site not specified; B96.20 Unspecified Escherichia coli [E. coli] as the cause of diseases classified elsewhere; E78.5 Hyperlipidemia, unspecified; G47.30 Sleep apnea, unspecified; K21.9 Gastro-esophageal reflux disease without esophagitis; Z87.440 Personal history of urinary (tract) infections; Z87.891 Personal history of nicotine dependence; Z86.718 Personal history of other venous thrombosis and embolism; Z90.710 Acquired absence of both cervix and uterus; Z83.3 Family history of diabetes mellitus; Z80.3 Family history of malignant neoplasm of breast; Z80.1 Family history of malignant neoplasm of trachea, bronchus and lung; Z80.0 Family history of malignant neoplasm of digestive organs
CPT/HCPCS: 71045; 71275; 76937; 80048; 80053; 81001; 83036; 83880; 84484; 85025; 85379; 87077; 87086; 87186; 93005; 94150; 94640; 94664; 96365; 96366; 96372; 96375; 96376; 99285; G0378; J0696; J1650; J2920; J2930; Q9967

== ENCOUNTER → 2017-08-15 | Outpatient (CLI) | payer MEDICARE ==
[~2017-08-15] MED LIST changes: -ALBU1AER INH; +ALBUAER3 INH; +AMIT8CAP6 PO; +AMLO10 PO; -ASMA220A IN; +ASMA220A INH; +Albuterol-Ipratropium Neb NEB; -BENZ100 PO; +BENZ1CAP51 PO; -CALCTAB8 PO; -CELE200 PO; +CELE200C PO; +CHLO2PAD TOPICAL; +CHOL5000 PO; -COZA100T PO; -FLON0.053; +Fluticason-Vilanter 100-25 Inh INH; -GLUC500C3 PO; -HYDR-2768 PO; +HYDR25TA5 PO; +IPRASOL INH; -METH1TAB29 PO; -MIAC200S; +MULT1TAB46 PO; -NAPR-576 PO; +NYST10007 TOPICAL; -OMEG100010 PO; +OMEGCAP PO; -PERC5TAB12 PO; +PRED10PA PO; -TAB-TAB PO; -VITA200017 PO
== END ==
LOC: HRSP 09:08
PROVIDERS: ATTEND Internal Medicine
DX: J45.909 Unspecified asthma, uncomplicated (principal)
CPT/HCPCS: 94060; 94618; 94726; 94729; 95012